=== PATIENT | male | born 1970 | race Caucasian/White ===

== ENCOUNTER 2016-07-18 07:59 | Day surgery (SDC) | payer MEDICAID ==
[2016-07-18] MEDS ORDERED: LACTATED RINGERS 1,000 ML IV ONE (08:55)
[2016-07-18] MEDS ORDERED: fentaNYL 100 MCG/2 ML VIAL IVP ONE (09:31)
[2016-07-18] MEDS ORDERED: MIDAZOLAM 2 MG/2 ML VIAL IVP ONE (09:31)
== END 2016-07-18 08:00 | disposition home or self-care (01) ==
PROC: 0DJD8ZZ Inspection of Lower Intestinal Tract, Via Natural or Artificial Opening Endoscopic (ICD-10-PCS; principal; 2016-07-18 09:45)
DX: Z12.11 Encounter for screening for malignant neoplasm of colon (principal); Z80.0 Family history of malignant neoplasm of digestive organs; Z87.891 Personal history of nicotine dependence; K64.8 Other hemorrhoids
CPT/HCPCS: 45378; J7120

== ENCOUNTER 2018-01-30 08:30 | Day surgery (SDC) | payer MEDICAID ==
[~2018-01-30 08:30] MED LIST: ceFAZolin 2 GM/50 ML 2 GM/50 ML BAG IV ONE
[2018-01-30] MEDS ORDERED: LACTATED RINGERS 1,000 ML IV ONE ×2 (09:20→12:40)
[2018-01-30] MEDS ORDERED: BUPIVACAINE 0.5% PF 30 ML VIAL ONE (09:26)
--- NOTE | 2018-01-30 09:55 | ANESTHESIA ---
Pre-Anesthesia VS, & Labs <Enoch Urbina - Last Filed: 01/30/18 09:54> - NPO >8 hours Last Fluid Intake: coffee at 6am <Linh Sanchez - Last Filed: 01/30/18 10:01> - Diagnosis Bilat inguinal hernias (Enoch Urbina) Bilat inguinal hernias (Linh Sanchez) - Procedure Lap marisa ing hernia repairs (Enoch Urbina) Lap marisa ing hernia repairs (Linh Sanchez) Vital Signs: Temp Pulse Resp BP Pulse Ox 36.8 C 67 18 135/80 H 96 01/30/18 08:48 01/30/18 08:48 01/30/18 08:48 01/30/18 08:48 01/30/18 08:48 Height 6 ft 4 in Weight (kg) 102.2 kg Home Medications and Allergies <Enoch Urbina - Last Filed: 01/30/18 09:54> <Linh Sanchez - Last Filed: 01/30/18 10:01> Home Medications: Ambulatory Orders No Known Home Medications 01/29/18 No Known Home Medications 01/29/18 Allergies/Adverse Reactions: Allergies Allergy/AdvReac Type Severity Reaction Status Date / Time No Known Drug Allergies Allergy Verified 01/29/18 12:26 Anes History & Medical History - Medical History Cardiovascular: reports: Other Pulmonary: reports: None Gastrointestinal: reports: Colon polyps Urinary: reports: None Musculoskeletal: reports: None Endocrine/Autoimmune: reports: None Skin: reports: Other - Surgical History General: Colonoscopy <Enoch Urbina - Last Filed: 01/30/18 09:54> - Anesthetic History Family history of Anesthesia Complications: Denies Family history of Malignant Hyperthermia: Denies - Medical History Cardiovascular: reports: None Pulmonary: reports: None Gastrointestinal: reports: None, Colon polyps Urinary: reports: None Neuro: reports: None Musculoskeletal: reports: None Endocrine/Autoimmune: reports: None Blood Disorders: reports: None Smoking Status: Never smoker Psychosocial: reports: No issues indicated - Surgical History General: Colonoscopy <Linh Sanchez - Last Filed: 01/30/18 10:01> Exam General: Alert, Oriented x3, Cooperative, No acute distress Dental: WNL Mouth Openin Fingerbreadth Neck Mobility: Normal Mallampati classification: I Thyromental Distance: 4-6 cm Respiratory: Lungs clear, Normal breath sounds, No respiratory distress, No accessory muscle use Cardiovascular: Regular rate, Normal S1, Normal S2, No murmurs Mental/Cognitive Status: Alert/Oriented X3, Normal for patient <Linh Sanchez - Last Filed: 01/30/18 10:01> Plan Anesthesia Type: General Consent for Procedure(s) Verified and Reviewed: Yes Code Status: Attempt Resuscitation ASA classification: 1-Healthy patient Is this case an emergency?: No <Linh Sanchez - Last Filed: 01/30/18 10:01>
[2018-01-30] MEDS ORDERED: DEXAMETHASONE 4 MG/ML VIAL IVP ONE (10:39)
[2018-01-30] MEDS ORDERED: fentaNYL 250 MCG/5 ML VIAL IVP ONE (10:39)
[2018-01-30] MEDS ORDERED: KETOROLAC 30 MG/ML VIAL IVP ONE (10:39)
[2018-01-30] MEDS ORDERED: ONDANSETRON 4 MG/2 ML VIAL IVP ONE (10:39)
[2018-01-30] MEDS ORDERED: PROPOFOL 200 MG/20 ML VIAL IVP ONE (10:39)
[2018-01-30] MEDS ORDERED: NEOSTIGMINE 1 MG/1 ML 10 ML MDV IVP ONE (10:39)
[2018-01-30] MEDS ORDERED: MIDAZOLAM 2 MG/2 ML VIAL IVP ONE (10:39)
[2018-01-30] MEDS ORDERED: GLUCAGON 1 MG/ML VIAL IM ONE (10:39)
[2018-01-30] MEDS ORDERED: ROCURONIUM 50 MG/5 ML VIAL IVP ONE (10:39)
[2018-01-30] MEDS ORDERED: BUPIVACAINE 0.5%-EPI 1:200000 PF 30 ML VIAL SUBQ ONE (10:50)
[2018-01-30] MEDS ORDERED: SUGAMMADEX 200 MG/2 ML VIAL IVP ONE (12:45)
[2018-01-30] MEDS ORDERED: HYDROcod/ACETAM 5/325 MG TABLET PO PRN (12:45)
[2018-01-30] MEDS ORDERED: HYDROmorphone 0.5 MG/0.5 ML SYRINGE IVP PRN (12:45)
[2018-01-30] MEDS ORDERED: ONDANSETRON 4 MG/2 ML VIAL IVP PRN (12:45)
--- NOTE | 2018-01-30 12:49 | OPERATIVE REPORT ---
Operative Report - General Planned Procedure: Laparoscopic TEP BILATERAL inguinal herniorrhaphy Pre-Op Diagnosis: BILATERAL inguinal hernias Procedure Performed: Laparoscopic TEP BILATERAL inguinal herniorrhaphy Post Op Diagnosis: BILATERAL indirect inguinal hernias - Procedure Note Primary Surgeon: Cali Allan MD Anesthesia Provider: Linh Sanchez CRNA spelled by Mario Urbina CRNA Anesthesia Technique: General ET tube, Local (30 mL 1/2% marcaine) IV Fluids (mL): 1,700 Estimated Blood Loss (mL): 15 Complications: None. - Other Other Information/Narrative: OPERATIVE DESCRIPTION/REPORT: After verbal and written informed consent was obtained detailing the risks of infection, bleeding requiring transfusion with its risks, nerve injury, and , and after I met with the patient confirming the surgery and the site of the surgery, the patient was brought to the operative suite and placed supine on the operating table. Great care was taken to avoid pressure points to prevent pressure necrosis or nerve injury. Monitoring devices were applied along with TEDs and pneumatic compressive stockings (to prevent DVT). The patient received preoperative antibiotics for surgical prophylaxis. [manager membership/anesthesiologist] sedated and induced general anesthesia and provided anesthesia care for the entirety of the case. The patient was prepped and draped in the usual sterile manner. With the patient draped my initials were clearly visible. A "time in" then confirmed that the patient was identified with 3 identifiers (name, date and medical record number), the history and physical was in the chart, the signed consent confirming the procedure was in the chart, the patient was in the correct position, the aforementioned prophylactic measures were in place or given, we had the correct personnel and equipment to complete the procedure and that anesthesia, surgery and nursing were given an opportunity to express any concerns. With the agreement of everyone in the room, we proceeded with the operation. A transverse skin incision was made below the umbilicus to a length of approximately 2 cm. The incision was carried through the subcutaneous tissue. Bleeders were cauterized. The right rectus sheath was identified and incised lateral to the midline. The preperitoneal space was then developed following insertion of a Spacemaker balloon, which was inflated under direct vision. Following removal of the Spacemaker balloon, a #10 trocar was placed in the preperitoneal space and the preperitoneal space was insufflated with CO2 to a steady state pressure of 12 mmHg. A 10 mm 30 degree laparoscope was inserted in the preperitoneal space. Two #5 trocars were placed 5 cm and 10 cm below the umbilicus under direct vision and without incident. Landmarks including symphysis pubis, right and left Rolly ligaments and right and left inferior epigastric vessels were identified. Dissection was then continued lateral to the transverse abdominis muscle bilaterally. The right side was addressed first. The internal ring was then explored for the presence of the indirect hernia sac and this was reduced under direct vision with traction and counter-traction. Exploration of the medial space did not show a medial defect suggesting no direct hernia. The inferior epigastric vessels were hanging down in the way of the dissection and in order to better visualize the area I clipped then proximally and distally and transected them. In short, they were "in the way." Once the dissection on the right was complete I switched sides and completed the dissection on the left with the only difference being that the left side showed what appeared to be the very beginning of a direct inguinal hernia in addition to the indirect hernia and the inferior epigastric vessels were not "in the way" and did not need to be clipped. In order not to change sides unnecessarily, I placed the mesh on the left side first. A Covidien Progrip LEFT anatomical mesh (Lot#[id number], Ref#[id number], Use by 2020-05-17) was obtained and placed. The mesh covered the internal ring as well as the potential direct hernia site. No tacking was required. On the right side a Covidien Progrip RIGHT anatomical mesh (Lot#[id number], Ref#[id number], Use by 2020-06-17) was obtained and placed. Again tacking was not required. Photographs were taken of the completed placement of the mesh. 10 mL of 1/2% Marcaine was injected into the preperitoneal space and then remaining 20 mL at all three incisions. The preperitoneal space was then deflated and during the deflation the mesh was watched to ensure that it was sandwiched nicely in place and did not change position. All trocars were withdrawn. The defect in the rectus sheath was closed with a [id number] Vicryl suture. The skin incisions were closed with subcuticular 4-0 Monocryl suture. The prep was washed off and Mastisol and Steristrips were applied at all the incisions. At this point a time out was performed that confirmed that all the counts were correct, the procedure that was performed, the blood loss, the IV fluids administered, and the patients condition. The prep was washed off and Benzoin and Steristrips were applied. Having tolerated the procedure well, the patient was subsequently extubated and taken to recovery room in good and stable condition. Flotype disclaimer: This document was created in part using voice recognition technology. Because of the inherent limitations of the system ([employer]'s [employer] D[employer] user manual states that the licensee understands that speech recognition is a statistical process and that recognition errors are inherent in the process), occasional same sounding word substitutions and grammatical errors do occur and persist despite proofreading. Please read this document for context.
[2018-01-30] MEDS ORDERED: ONDANSETRON 4 MG/2 ML VIAL ONE (14:14)
[2018-01-30 15:09] VITALS: BP 108/58
== END 2018-01-30 08:31 | disposition home or self-care (01) ==
LOC: SDS 08:30
PROVIDERS: ATTEND Surgery
PROC: 0YUA4JZ Supplement Bilateral Inguinal Region with Synthetic Substitute, Percutaneous Endoscopic Approach (ICD-10-PCS; principal; 2018-01-30 09:30)
DX: K40.20 Bilateral inguinal hernia, without obstruction or gangrene, not specified as recurrent (principal); F41.9 Anxiety disorder, unspecified; G47.30 Sleep apnea, unspecified; Z87.891 Personal history of nicotine dependence
CPT/HCPCS: 49650; C1781; J0690; J7120

== ENCOUNTER 2018-10-15 07:39 | Outpatient (CLI) | payer MEDICAID ==
[2018-10-15 10:45] LABS: BUN - BLOOD UREA NITROGEN 14 mg/dL (6-20); CALCIUM 9.5 mg/dL (8.5-10.3); CARBON DIOXIDE - CO2 23 mmol/L (21-32); CHLORIDE 105 mmol/L (101-111); CHOL/HDL RATIO 2.8 (<5.0); CHOLESTEROL 178 mg/dL; GFR - MDRD 79 (>89); GLUCOSE 98 mg/dL (70-100); HDL CHOLESTEROL 64 mg/dL; LDL CHOLESTEROL,CALCULATED 104 mg/dL; LDL/HDL RATIO 1.6 (<3.6); SODIUM 141 mmol/L (135-145); VLDL CHOLESTEROL 10 mg/dL
== END 2018-10-15 07:40 | disposition home or self-care (01) ==
LOC: LAB.S 07:39
PROVIDERS: ATTEND Internal Medicine
DX: Z00.00 Encounter for general adult medical examination without abnormal findings (principal)
CPT/HCPCS: 36415; 80048; 80061; 83721